=== PATIENT | male | born 1965 | race Caucasian/White ===

== ENCOUNTER 2025-01-11 07:58 | Outpatient (CLI) | payer OTHER, SELFPAY ==
--- OUTSIDE RECORDS SUMMARY | 2025-01-11 08:04 | XMS_ITS | Referral Summary ---
Author Organization [facility] Address [address] [place] [address] Care Team Providers Care Headhunter Name Role Phone Fernando Myers MD Primary Care Provider [phone] Allergies No known active allergies Medications aspirin 81 mg tablet Take 1 tablet (81 mg total) by mouth daily Active citalopram (CeleXA) 40 mg tabletIndicatio ns:Moderate episode of recurrent major depressive disorder (HCC),Generaliz ed anxiety disorder Take 1 tablet by mouth once daily 30 tablet 5 Active pravastatin (PRAVACHOL) 40 mg tabletIndicatio ns:Dyslipidemia Take 1 tablet by mouth once daily 30 tablet 5 Active fenofibrate (TRIGLIDE) 160 mg tabletIndicatio ns:Dyslipidemia Take 1 tablet by mouth once daily 30 tablet 5 Active citalopram (CeleXA) 40 mg tabletIndicatio ns:Moderate episode of recurrent major depressive disorder (HCC),Generaliz ed anxiety disorder Take 1 tablet by mouth once daily 30 tablet 5 12/29/19 25 Discontinued pravastatin (PRAVACHOL) 40 mg tabletIndicatio ns:Dyslipidemia Take 1 tablet by mouth once daily 30 tablet 5 12/29/19 25 Discontinued fenofibrate (TRIGLIDE) 160 mg tabletIndicatio ns:Dyslipidemia Take 1 tablet by mouth once daily 30 tablet 5 12/29/19 25 Discontinued Active Problems Problem Noted Date Diagnosed Date SABA (obstructive sleep apnea) 09/10/2023 Personal history of colonic polyps 06/21/2023 Encounter for screening colonoscopy 06/21/2023 Refused influenza vaccine 08/21/2019 Assessment & Plan (08/21/2019 9:23 PM CDT): Discussed and the patient refuses immunization today. Educated regarding the need to vaccinate for personal protection and to limit the viruses in the community to protect those most vulnerable. Overweight with body mass in dex (BMI) of 29 to 29.9 in adult 11/08/2018 Assessment & Plan (09/01/2024 2:00 PM CDT): Encouraged heart healthy diet and lifestyle. Advised 150 min/week of aerobic exercise. Assessment & Plan (11/08/2018 4:00 PM CDT): Reviewed need to lose weight, reviewed health benefits. Reviewed recommendations for daily intake & activity 20-30 minutes/day. Lower appetite, has lost weight. Spinal stenosis of lumbar re gion without neurogenic claudication-moderate L3-4 level 04/25/2018 Assessment & Plan (09/01/2024 2:00 PM CDT): Assessment & Plan (08/21/2019 9:23 PM CDT): Encouraged otc tylenol/ibuprofen prn back pain. Discussed ice, gentle ROM, increased activity/core strengthening & other non pharm methods of pain relief. Tramadol & diazepam refilled today. Aware to NOT take together. Denies bowel/bladder dysfunction. Denies cauda equina. Reviewed red flags. Screening for colon cancer 02/17/2018 Overview (02/17/2018): Added automatically from request for surgery [id number] Chronic bilateral low back pain without sciatica 07/22/2017 Assessment & Plan (09/01/2024 2:00 PM CDT): Stable and well controlled. No recent flare ups. Will continue to monitor. Assessment & Plan (11/08/2018 4:03 PM CDT): Discussed medical marijuana/CBD. Aware to make f/u appt w/Dr Myers if he is interested in moving forward. Tramadol refilled. Has not had filled since 06/2018. Reviewed med SE& scheduling. Will call Dr Mckinley's office re: worsening of LBP since most recent injection. Encouraged otc tylenol/ibuprofen prn back pain. Discussed ice, gentle ROM, increased activity/core strengthening & other non pharm methods of pain relief. Denies bowel/bladder dysfunction. Denies cauda equina. Reviewed red flags. Pain of foot 03/02/2016 Overview (09/17/2016): Right foot pain Moderate episode of recurrent major depressive d isorder 12/12/2015 Overview (09/17/2016): Moderate episode of recurrent major depressive disorder Assessment & Plan (09/01/2024 2:00 PM CDT): Stable and well controlled. Will continue on Celexa. Will continue to monitor. Assessment & Plan (08/21/2019 9:21 PM CDT): Reports good control of depression w/current regimen. No changes to be made at this time. Reviewed med Ses & scheduling. Reviewed red flags. Assessment & Plan (11/08/2018 4:01 PM CDT): Psychological condition is stable. Continue current treatment regimen. Regular aerobic exercise. Psychological condition will be reassessed at the next regular appointment. Reports good control of depression w/current regimen. No changes to be made at this time. Reviewed med Ses & scheduling. Reviewed red flags. Anxiety disorder 01/15/2015 Overview (09/17/2016): Anxiety disorder Assessment & Plan (09/01/2024 2:00 PM CDT): Stable and well controlled. Will continue on Celexa. Will continue to monitor. Assessment & Plan (08/21/2019 9:21 PM CDT): Reports good control of anxiety w/current regimen. No changes to be made at this time. Reviewed med Ses & scheduling. Reviewed red flags. Assessment & Plan (11/08/2018 4:00 PM CDT): Psychological condition is stable. Continue current treatment regimen. Regular aerobic exercise. Psychological condition will be reassessed at the next regular appointment. Reports good control of anxiety w/current regimen. No changes to be made at this time. Citalopram 40 mg refill sent. Reviewed med Ses & scheduling. Reviewed red flags. Dyslipidemia 10/28/2013 Overview (09/18/2016): Dyslipidemia Assessment & Plan (09/01/2024 2:00 PM CDT): Lipid panel improved but not at goal of LDL <70. Will continue on Fenofibrate and pravastatin. Will continue to monitor. Assessment & Plan (08/21/2019 9:20 PM CDT): 03/11/18 VG=855 HDL=42 XQ=583 TON=827 TC/HDL=6.6 06/22/19 AC=958 HDL=54 BB=499 AWE=557 TC/HDL=4.1 Reviewed labs from 06/22/19. LDL improved from 201 to 139. TC/HDL decreased from 6.6 to 4.1. Gastroesophageal reflux disease 10/28/2013 Overview (09/18/2016): Esophageal reflux Assessment & Plan (08/21/2019 9:20 PM CDT): Reviewed provocative foods to avoid: caffeine, citrus, ETOH, carbonated drinks, fried/fatty/fast foods & rich/creamy sauces. Reviewed diet/exercise recommendations: 20-30min physicaly activity daily at minimum. Reviewed med Ses & scheduling. Weight loss will help improve GERD sxs. Keep HOB elevated 30 degrees & not eat 2-3 hrs before bedtime. Resolved Problems Problem Noted Date Diagnosed Date Resolved Date DDD (degenerative disc disease), lumbar 08/25/2019 09/01/2024 Lumbar post-laminectomy synd aamir-L4,L5,sacrum pedicle fusion 04/25/2018 09/01/2024 Disorder of intervertebral disc 10/28/2013 09/01/2024 Overview (09/18/2016): DISC DIS NEC/NOS-LUMBAR Immunizations Immunization Administration Dates Next Due Influenza, Quadrivalent, Spl it, Preservative Free, Intramuscular 03/11/2018,07/09/2017,07/02/2016 Influenza, Split 08/25/2013,08/25/2013 Influenza, Trivalent, IM (MDV) 04/14/2014,2013 Influenza, Unspecified 09/01/2024(Deferr ed: Patient Refused),09/01/2024(Deferred: Patient Refused),04/18/2024(Deferred: Patient Refused),02/13/2024(Deferred: Patient Refused),02/13/2024(Deferred: Patient Refused),06/14/2023(Deferred: Patient Refused),03/23/2023(Deferred: Patient Refused),03/14/2023(Deferred: Patient Refused),09/08/2022(Deferred: Patient Refused),09/08/2022(Deferred: Patient Refused),06/14/2021(Deferred: Patient Refused),02/21/2021(Deferred: Patient Refused),10/31/2020(Deferred: Patient Refused),08/21/2019(Deferred: Patient Refused),06/14/2019(Deferred: Patient Refused),06/14/2019(Deferred: Patient Refused),06/14/2018(Deferred: Patient Refused),07/09/2017 Tdap 11/07/2022 Social History Tobacco Use Types Packs/Day Years Used Date Smoking Tobacco: Former Smokeless Tobacco: Never Tobacco Cessation:Counseling Given: Not Answered Comments:Smoking History Packs/day: 0.5 Packs Alcohol Use Standard Drinks/Week Comments Not Asked 0 (1 standard drink = 0.6 oz pur e alcohol) 2-3 nights a week, weekends PHQ-2 Answer Date Recorded PHQ-2 Total Score (If total score is 3 or more points, staff should administer the PHQ-9) 0 09/01/2024 Personal Safety Answer Date Recorded Have you ever been in or are you currently in a harmful physical or emotional relationship or is someone making you feel afraid or unsafe? Denies 12/29/2023 Sex and Gender Information Value Date Recorded Sex Assigned at Not on file Legal Sex Male 6:54 PM [employer] Gender Identity Not on file Sexual Orientation Not on file Last Filed Vital Signs Vital Sign Reading Time Taken Comments Blood Pressure 112/70 09/01/2024 1:24 PM CDT Pulse 83 09/01/2024 1:24 PM CDT Temperature 36.5 C (97.7 F) 03/15/2024 3:02 PM CDT Respiratory Rate 18 09/01/2024 1:24 PM CDT Oxygen Saturation 96% 09/01/2024 1:24 PM CDT Inhaled Oxygen Concentration - - Weight 89.4 kg (197 lb 3.2 oz) 09/01/2024 1:24 P M CDT Height 175.3 cm (5' 9.02) 09/01/2024 1:24 PM CD T Body Mass Index 29.11 09/01/2024 1:24 PM CDT Plan of Treatment Not on file Goals Goal Patient Goal Type Associated Problems Recent Progress Patient-Stated? Author -[facility] Deepali Saleh, LUIS Note: Spend quality time with [facility] Procedures Procedure Name Priority Date/Time Associated Diagnosis Comments PSA SCREEN Routine 09/25/2024 10:33 AM CDT Elevated PSA COLONOSCOPY 12/29/2023 8:45 AM CDT from Last 3 Months or Most Recently Relevant to Health Maintenance Results * (ABNORMAL) PSA screen (09/25/2024 10:33 AM CDT) PSA 5.33(H) < OR = 4.00 ng/mL [facility] Comment: The total PSA value from this assay system is standardized against the WHO standard. The test result will be approximately 20% lower when compared to the equimolar-standardized total PSA (Danielle [place]). Comparison of serial PSA results should be interpreted with this fact in mind. This test was performed using the Siemens chemiluminescent method. Values obtained from different assay methods cannot be used interchangeably. PSA levels, regardless of value, should not be interpreted as absolute evidence of the presence or absence of disease. Blood 09/25/2024 10:3 3 AM CDT 09/25/2024 10:34 AM CDT Narrative [facility] - 09/26/2024 6:34 AM CDT FASTING:YES FASTING: YES Sonia Mabel King PATTERN PAINTER LAB BLOOD ORDERABLES Final Re sult [facility] [id number] [address] [place] [id number] * Colonoscopy (12/29/2023 8:45 AM CDT) Anatomical Region Laterality Modality Other Narrative Procedure Note Aidee Powers MD - 12/29/2023 8:45 AM CDT [facility] Patient Name: Ulices Jamil Procedure Date: 12/29/2023 8:45 AM Date of : 1965 Admit Type: Outpatient Age: 58 Gender: Male Attending MD: Aidee Powers M.D. Room: [facility] ENDOSCOPY ROOM 2 Note Status: Finalized Patient Profile: This is a 58 year old male hx of depression,anxiety, HLD, GERD, obesity, SABA here for polypsurveillance. Last colonoscopy from 2017 showed 1 polyp howeverbx did not reveal any polypoid tissue. No family hx of colon cancer. Procedure: Colonoscopy Indications: High risk colon cancer surveillance: Personalhistory of colonic polyps, Last colonoscopy: February2018 Referring MD: Fernando Myers M.D. Providers: Aidee Powers M.D. Impression: - Preparation of the colon was fair. - Perianal skin tags found on perianal exam. - One 3 mm polyp in the cecum, removed with a jumbo cold forceps. Resected and retrieved. - One 3 mm polyp in the transverse colon, removedwith a jumbo cold forceps. Resected and retrieved. - One 4 mm polyp in the rectum, removed with a cold snare. Resected and retrieved. - One 3 mm polyp in the rectum, removed with ajumbo cold forceps. Resected and retrieved. - External and internal hemorrhoids. - Colonic spasm and looping. Recommendation: - Patient has a contact number available for emergencies. The signs and symptoms of potential delayed complications were discussed with thepatient. Return to normal activities tomorrow. Written discharge instructions were provided to thepatient. - Discharge patient to home (with escort). - Resume previous diet. - Continue present medications. - Await pathology results. - Repeat colonoscopy in 3 years for surveillancebased on pathology results. - Return to primary care physician as previously scheduled. Medicines: Monitored Anesthesia Care Complications: No immediate complications. Estimated Blood Loss: Estimated blood loss was minimal. Procedure: Pre-Anesthesia Assessment: - Prior to the procedure, a History and Physicalwas performed, and patient medications and allergieswere reviewed. The patient is competent. The risks and benefits of the procedure and the sedation optionsand risks were discussed with the patient. Allquestions were answered and informed consent was obtained. Patient identification and proposed procedure were verified by the physician, the anesthesiologist and the freezer laboratory technician in the endoscopy suite. MentalStatus Examination: normal. Prophylactic Antibiotics: The patient does not require prophylactic antibiotics. Prior Anticoagulants: The patient has taken no anticoagulant or antiplatelet agents. Afterreviewing the risks and benefits, the patient was deemed in satisfactory condition to undergo the procedure.The anesthesia plan was to use monitored anesthesiacare (MAC). Immediately prior to administration of medications, the patient was re-assessed foradequacy to receive sedatives. The heart rate, respiratory rate, oxygen saturations, blood pressure, adequacyof pulmonary ventilation, and response to care were monitored throughout the procedure. The physical status of the patient was re-assessed after the procedure. The benefits, risks and alternatives of theprocedure and sedation were discussed and informed consentwas obtained. All questions were answered. Please referto the signed informed consent document in the medical record. The bowel preparation used was Miralax via split dose instruction. The bowel preparation usedwas bisacodyl tablets via split dose instruction. The scope was passed under direct vision. The Pediatric Colonoscope PCF-H190L [id number] was introducedthrough the anus and advanced to the the cecum, identifiedby appendiceal orifice and ileocecal valve. The colonoscopy was somewhat difficult. The patient tolerated the procedure well. The quality of thebowel preparation was fair. Bowel prep was administered using a split dose. Findings: Skin tags were found on perianal exam. A 3 mm polyp was found in the cecum. The polyp was flat. The polypwas removed with a jumbo cold forceps. Resection and retrieval werecomplete. A 3 mm polyp was found in the transverse colon. The polyp was flat.The polyp was removed with a jumbo cold forceps. Resection and retrieval were complete. A 4 mm polyp was found in the rectum. The polyp was sessile. Thepolyp was removed with a cold snare. Resection and retrieval werecomplete. A 3 mm polyp was found in the rectum. The polyp was sessile. Thepolyp was removed with a jumbo cold forceps. Resection and retrieval were complete. External and internal hemorrhoids were found during retroflexion. There was spasm and looping in the colon making exam somewhatdifficult. Aidee Powers M.D. 12/29/2023 11:16:50 AM Number of Addenda: 0 Note Initiated On: 12/29/2023 8:45 AM Procedure Code(s): --- Professional --- 59325, Colonoscopy, flexible; with removal of tumor(s), polyp(s), or other lesion(s) by snare technique 02499, 59, Colonoscopy, flexible; with biopsy, single or multiple --- Technical --- 88658, Colonoscopy, flexible; with removal of tumor(s), polyp(s), or other lesion(s) by snare technique [id number], 59, Colonoscopy, flexible; with biopsy, single or multiple Diagnosis Code(s): --- Professional --- Z86.010, Personal history of colonic polyps K64.8, Other hemorrhoids K58.9, Irritable bowel syndrome without diarrhea D12.0, Benign neoplasm of cecum D12.3, Benign neoplasm of transverse colon (hepatic flexure orsplenic flexure) D12.8, Benign neoplasm of rectum K64.4, Residual hemorrhoidal skin tags --- Technical --- Z86.010, Personal history of colonic polyps K64.8, Other hemorrhoids K58.9, Irritable bowel syndrome without diarrhea D12.0, Benign neoplasm of cecum D12.3, Benign neoplasm of transverse colon (hepatic flexure orsplenic flexure) D12.8, Benign neoplasm of rectum K64.4, Residual hemorrhoidal skin tags CPT copyright 2020 [employer]. All rights reserved. The codes documented in this report are preliminary and upon health unit supervisor reviewmay be revised to meet current compliance requirements. Recognized by the [employer] [employer] for promoting quality in endoscopy Aidee Powers MD ENDOSCOPY PROCEDURES Final Resul t from Last 3 Months or Most Recently Relevant to Health Maintenance Insurance [facility] CHOICE PLUS [facility] CHOICE PLUS ANTH [employer] OOS Member Subscriber Plan / Payer (Ef fective 2020-Present) Name:Ulices Jamil Relation to Subscriber:Self Name:Ulices Jamil Payer ID:[id number] (NAIC) Type:[employer] Address: [address] CHOICE PLUS [facility] CHOICE PLUS Advance Directives For more information, please contact: [phone] * Full Code (Latest Code Status on File) Date Activated Date Inactivated Comments 12/29/2023 8:45 AM 12/29/2023 3:53 PM * Full Code Date Activated Date Inactivated Comments 12/29/2023 8:45 AM 12/29/2023 8:45 AM * Full Code Date Activated Date Inactivated Comments 03/07/2018 7:40 AM 03/07/2018 11:47 AM Care Teams Headhunter Relationship Specialty Start Date End Date Fernando Myers [place] [address] PCP - General 09/11/16
--- OUTSIDE RECORDS SUMMARY | 2025-01-11 08:04 | XMS_ITS | Clinical Summary ---
Author Organization [facility] Address [address] [place] [address] Care Team Providers Care Artificial Snow Making Machine Operator Name Role Phone Fernando Myers MD Primary Care Provider [phone] Allergies No known active allergies Medications aspirin [...] (02/17/2018): Added automatically from request for surgery [id number] Chronic bilateral low back pain without sciatica [...] & Plan (08/21/2019 9:20 PM CDT): 03/11/18 NK=500 HDL=42 JG=378 YOL=882 TC/HDL=6.6 06/22/19 IZ=633 HDL=54 PD=309 IDH=776 TC/HDL=4.1 Reviewed labs from 06/22/19. LDL improved [...] Refused),06/14/2019(Deferred: Patient Refused),06/14/2018(Deferred: Patient Refused),07/09/2017 Tdap 11/07/2022 Surgical History Surgery Date Site/Laterality Comments SPINAL FUSION Spinal fusion Medical History Medical History Date Comments GERD (gastroesophageal reflux disease) Arthritis Depression Low back pain Hyperlipidemia Family History Medical History Relation Name Comments Other Father CAD, OA; Hypertension Mother Mom Hypertension; Hypertension Sister 2 Jenna Hypertension; Relation Name Status Comments Father Alive Mother Mom Alive Sister 1 Alive Sister 2 Jenna Social History Tobacco Use Types Packs/Day Years [...] on file 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 Gender Identity Not on file Sexual Orientation Not on file Obstetrics History Last Filed Vital Signs Vital Sign Reading [...] 09/01/2024 1:24 PM CDT Plan of Treatment Health Maintenance Due Date Last Done Comments Hepatitis C Screening 1965 Hepatitis B Screening 1985 Zoster Vaccine (1 of 2) 2017 Influenza Vaccine (#1) 2025 8, 07/09/2017, 07/09/2017, Additional history exists Depression Screening 09/01/2025 09/01/2024, 03/15/2024, 03/23/2023, Additional history exists Regular Well Visit/Exam 18-64 09/01/2025 09/01/2024, 09/08/2022, 02/21/2021 Prostate Cancer Screening-PSA 09/25/2026 09/25/2024, 08/30/2024, 09/05/2022 Colon Cancer Screening-Colonoscopy 12/28/2026 12/29/2023, 03/07/2018 DTaP/Tdap/Td Vaccine (2 - Td or Tdap) 11/07/2032 11/07/2022 Colon Cancer Screening-CT Colonography Discontinued 12/29/2023, 03/07/2018 Colon Cancer Screening-DNA Stool Discontinued 12/29/2023, 03/07/2018 Colon Cancer Screening-FIT Discontinued 12/29/2023, Colon Cancer Screening-Sigmoidoscopy Discontinued 12/29/2023, 03/07/2018 Pneumococcal vaccine <65 Aged Out No longer eligible based on patient's age to complete this topic Goals Goal Patient Goal Type Associated Problems Recent Progress Patient-Stated? Author [facility] No Deepali Davis, LUIS Note: Spend quality time with [employer] Procedures Procedure Name Priority Date/Time Associated Diagnosis Comments PSA SCREEN Routine 09/25/2024 10:33 AM CDT Elevated PSA COLONOSCOPY 12/29/2023 8:45 AM CDT from Last 3 Months or Most Recently Relevant to Health Maintenance Results * (ABNORMAL) PSA screen (09/25/2024 10:33 AM CDT) PSA 5.33(H) < OR = 4.00 ng/mL [facility] Comment: The total PSA value from this assay system is standardized against the WHO standard. The test result will be approximately 20% lower when compared to the equimolar-standardized total PSA (Danielle Mamta). Comparison of serial PSA results should be [...] 09/26/2024 6:34 AM CDT FASTING:YES FASTING: YES us Sonia King NP LAB BLOOD ORDERABLES Final Re sult [facility] [address] [address] * Colonoscopy (12/29/2023 8:45 AM CDT) Anatomical Region Laterality Modality Other Narrative Procedure Note Aidee Powers MD - 12/29/2023 8:45 AM CDT [facility] Patient Name: Ulices Jamil Procedure Date: 12/29/2023 8:45 AM Date of : 1965 Admit Type: Outpatient Age: 58 Gender: Male Attending MD: Aidee Powers M.D. Room: [facility] ENDOSCOPY ROOM 2 Note Status: Finalized Patient [...] by the physician, the anesthesiologist and the feed research technician in the endoscopy suite. MentalStatus Examination: [...] under direct vision. The Pediatric Colonoscope PCF-H190L [id number] was introducedthrough the anus and advanced to [...] 8:45 AM Procedure Code(s): --- Professional --- 47623, Colonoscopy, flexible; with removal of tumor(s), polyp(s), or other lesion(s) by snare technique 24541, 59, Colonoscopy, flexible; with biopsy, single or multiple --- Technical --- 58007, Colonoscopy, flexible; with removal of tumor(s), polyp(s), or other lesion(s) by snare technique 54063, 59, Colonoscopy, flexible; with biopsy, single or [...] Residual hemorrhoidal skin tags CPT copyright 2020 [place] [employer]. All rights reserved. The codes documented in this report are preliminary and upon naval aircrewman helicopter reviewmay be revised to meet current compliance requirements. Recognized by the [place] [employer] for promoting quality in endoscopy Aidee Powers MD ENDOSCOPY PROCEDURES Final Resul t from Last 3 Months or Most Recently Relevant to Health Maintenance Insurance [facility] H[facility]/PPO Address: [id number] [place] [address] [facility] CHOICE PLUS [facility]/PPO Address: [address] [address] [place] [address] [facility] [employer] OOS CHOICE PLUS [facility] HMO/PPO Address: [address] [address] [place] [address] [facility] CHO[facility]/PPO Address: [place] [address] Advance Directives For more information, please contact: [phone] * Full Code (Latest Code Status on File) Date Activated Date Inactivated Comments 12/29/2023 8:45 AM 12/29/2023 3:53 PM * Full Code Date Activated Date Inactivated Comments 12/29/2023 8:45 AM 12/29/2023 8:45 AM * Full Code Date Activated Date Inactivated Comments 03/07/2018 7:40 AM 03/07/2018 11:47 AM Care Teams Artificial Snow Making Machine Operator Relationship Specialty Start Date End Date Fernando Myers MD [address] [place] [address] PCP - General 09/11/16
--- OUTSIDE RECORDS SUMMARY | 2025-01-11 08:05 | XMS_ITS | Clinical Summary ---
Author Organization [facility] Address [address] [place] [address] Care Team Providers Care Business Instructor Name Role Phone Fernando Myers MD Primary Care Provider [phone] Allergies No known active allergies Medications ARIPiprazole (ABILIFY) 5 MG tablet Take 1 tablet (5 mg total) by mouth daily. Active aspirin EC (ECOTRIN) 81 MG tablet Take 1 tablet (81 mg total) by mouth daily. Active citalopram (CELEXA) 40 MG tablet Take 1 tablet (40 mg total) by mouth daily. 11/02/2022 Active fenofibrate 160 MG tablet Take 1 tablet (160 mg total) by mouth daily. Active pravastatin (PRAVACHOL) 40 MG tablet Take 1 tablet (40 mg total) by mouth daily. Active Immunizations Immunization Administration Dates Next Due Tdap (Boostrix) 11/07/2022 Family History Medical History Relation Comments Hypertension Mother Relation Status Comments Father Mother Alive Social History Tobacco Use Types Packs/Day Years Used Date Smoking Tobacco: Never Smokeless Tobacco: Never Tobacco Cessation:Counseling Given: Not Answered Alcohol Use Standard Drinks/Week Comments Yes 0 (1 standard drink = 0.6 oz pur e alcohol) occasional Sex and Gender Information Value Date Recorded Sex Assigned at Not on file Legal Sex Male 4:46 PM CDT Gender Identity Not on file Sexual Orientation Not on file Last Filed Vital Signs Vital Sign Reading Time Taken Comments Blood Pressure 144/80 11/07/2022 10:27 PM CDT Pulse 85 11/07/2022 10:27 PM CDT Temperature 36.8 C (98.3 F) 11/08/2022 12:12 AM CDT Respiratory Rate 16 11/07/2022 10:27 PM CDT Oxygen Saturation 97% 11/07/2022 10:27 PM CDT Inhaled Oxygen Concentration - - Weight 90.7 kg (200 lb) 11/07/2022 10:27 PM CDT Height 175.3 cm (5' 9) 11/07/2022 10:27 PM CDT Body Mass Index 29.53 11/07/2022 10:27 PM CDT Plan of Treatment Health Maintenance Due Date Last Done Comments Colorectal Cancer Screening Colonoscopy (10 Years) 1967 Annual Physical 1970 Hepatitis C 1985 Hepatitis B Vaccines (1 of 3 - 19+ 3-dose series) 1986 Pneumococcal Vaccine: 50+ Years (1 of 1 - PCV) 2017 Zoster Vaccines (1 of 2) 2017 COVID-19 Vaccine (3 - 2023-2 5 season) 2024 09/22/2020, 08/10/2020 DTaP, Tdap and Td Vaccines ( 2 - Td or Tdap) 11/07/2032 11/07/2022 Meningococcal B Vaccine Aged Out No l onger eligible based on patient's age to complete this topic Meningococcal Vaccine Aged Out No rajiv fernando eligible based on patient's age to complete this topic RSV Immunizations Under 20 Months Aged Out No longer eligible b ased on patient's age to complete this topic Insurance [id number] Care Teams Business Instructor Relationship Specialty Start Date End [place] [address] PCP - General INTERNAL MEDICINE 11/07/22
--- NOTE | 2025-01-11 08:43 | ECG_ITS ---
Test Date: 2025-01-11 09:16:30 Measurements Intervals [place] Rate: 61 P: 44 CA: 192 QRS: 17 QRSD: 106 T: 36 QT: 423 QTc: 429 Interpretive Statements SINUS RHYTHM DELAYED PRECORDIAL R/S TRANSITION BASELINE ARTIFACT- I, II, III, AVR, AVL, AVF, V1-V6 BORDERLINE ECG No previous ECG available for comparison Electronically Signed On 01-12-2025 06:25:08 CDT by Trevor Melchor D.O.
[2025-01-11 09:30] LABS: Hematocrit 39.2 % (42.0-52.0); Hemoglobin 13.2 g/dL (14.0-18.0); Immature Granulocyte Percent A 0.2 % (0-0.5); Lymphocytes Absolute Auto 1.97 K/mm3 (0.9-3.2); Mean Corpuscular HGB Conc 33.7 g/dl (32-36); Mean Corpuscular Hemoglobin 31.7 pg (26-34); Mean Corpuscular Volume 94.2 fl (80-100); Nucleated Red Blood Cells Absolute Auto 0.000 K/mm3 (0.0-0.012); Nucleated Red Blood Cells Perc 0.0 % (0.0-0.2); Platelet Count Result 307 k/mm3 (150-375); Red Blood Count 4.16 M/mm3 (4.6-6.20); White Blood Count 6.1 K/mm3 (4.5-10.0)
[2025-01-11 09:42] LABS: INR 1.0; Prothrombin Time 13.3 Seconds (11.1-14.7)
[2025-01-11 09:43] LABS: Partial Thromboplastin Time 29.2 Seconds (22.3-36.8)
[2025-01-11 09:56] LABS: Alanine Aminotransferase 34 U/L (6-50); Albumin Level 4.9 g/dL (3.5-5.1); Alkaline Phosphatase 42 U/L (38-126); Anion Gap 6 mmol/L (4-12); Aspartate Amino Transferase 43 U/L (17-59); Bilirubin,Total 0.6 mg/dL (0.2-1.3); Blood Urea Nitrogen 18 mg/dL (9-20); Calcium 9.4 mg/dL (8.4-10.2); Carbon Dioxide 27 mmol/L (22-30); Chloride 103 mmol/L (98-107); Estimated Glomerular Filt Rate > 60; Glucose 98 mg/dL (65-110); Potassium 4.0 mmol/L (3.4-5.0); Sodium 136 mmol/L (137-145); Total Protein 7.8 g/dL (6.3-8.2)
== END 2025-01-11 07:59 | disposition home or self-care (01) ==
LOC: ANHSURGERY 08:02
PROVIDERS: PCP Family Medicine; Visit Provider Urology
DX: C61 Malignant neoplasm of prostate (principal); E78.00 Pure hypercholesterolemia, unspecified; Z01.818 Encounter for other preprocedural examination
CPT/HCPCS: 36415; 80053; 85025; 85610; 85730; 86850; 86900; 86901; 87086; 93005

== ENCOUNTER 2025-01-19 03:06 | Day surgery (SDC) | payer OTHER, SELFPAY ==
--- NOTE | 2025-01-11 08:00 | PC.NURSE ---
Report to the Outpatient Waiting Room, entrance under the green pavilion located off [facility], at time _7 AM on date __01/19/25 . Planned Procedure Time: __9 AM .? Time changes happen often and if your time is changed the preop area will call you the afternoon before. - You and your visitor will be asked to self-screen and do not enter if you have any COVID symptoms. Please call surgeon if you need to reschedule. - A mask is optional within the hospital at this time. Patients may have clear liquids (water, carbonated beverages, clear teas, apple juice) until 3 hours prior to surgery ( 6AM) with a maximum of 20 ounces. - No food from midnight until time of surgery and no smoking, or chewing tobacco (or any form of nicotine). No chewing gum, candy or mints. Take only the following medications with a SIP of water on the morning of surgery: ___CITALOPRAM DO NOT STOP ANY OF YOUR OTHER PRESCRIPTION MEDICATIONS PRIOR TO SURGERY EXCEPT THE FOLLOWING Hold all vitamins and supplements for 3 days per anesthesiologist. Medications to discontinue per physician IBUPROFEN HOLD 7 DAYS PRE OP PER DR ACKERMAN Date to take last dose 01/11/25 Please no make-up, nail [place] su[place], hairspray, perfume, deodorant, or body powder the day of surgery.? No jewelry (including any body piercings) or valuables the day of surgery, leave them at home.? Please take a shower or bath the night before, or the morning of, surgery with an antibacterial soap.? Wear comfortable, loose fitting clothing.? Children are encouraged to wear pajamas. - Jewelry must be removed prior to entering the operating room.? Rings and piercings that are not removed may be cut off. - The hospital will not accept responsibility for valuables.? - Please leave all valuables, including medications, at home the day of surgery. If you are going home after surgery, a licensed otr driver must drive you home.? - NO public transportation without another adult if you receive anesthesia. - We recommend that an adult stay with you for 24 hours following discharge. - We also recommend that you do not drive, make important decision, drink alcoholic beverages, or take any drugs that were not prescribed by your health care provider for at least 24 hours after your discharge time. Follow any additional instructions given to you from your surgeon. VERBAL AND WRITTEN instructions given to ___PATIENT and asked if any additional questions and then verbalized understanding. Patient advised to call surgeon office or pre surgery nurse liaison [phone] if any additional questions.
[2025-01-11 08:05] VITALS: BMI 29.1
[2025-01-11 08:43] VITALS: BP 135/87; PULSE 60; RESP 18; TEMP 36.8; O2SAT 97
[2025-01-19] VITALS (11 sets, daily range): BP systolic 128–151; BP diastolic 74–94; PULSE 73–87; RESP 14–20; TEMP 36.2–37; O2SAT 93–100; BMI 27.8
--- OUTSIDE RECORDS SUMMARY | 2025-01-19 03:09 | XMS_ITS | Clinical Summary ---
Author Organization [facility] Address [address] [place] [address] Care Team Providers Care Tearer Press Clipping Name Role Phone Fernando Myers MD Primary Care Provider [phone] Allergies No known active allergies Medications aspirin [...] (02/17/2018): Added automatically from request for surgery [id number] Chronic bilateral low back pain without sciatica [...] & Plan (08/21/2019 9:20 PM CDT): 03/11/18 GD=606 HDL=42 HQ=470 OZN=076 TC/HDL=6.6 06/22/19 IH=712 HDL=54 HV=775 TYM=264 TC/HDL=4.1 Reviewed labs from 06/22/19. LDL improved [...] 10/28/2013 09/01/2024 Overview (09/18/2016): DISC DIS NEC/NOS-LUMBAR Encounters Date Type Department Care Team Description 01/11/[address] 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 Author [facility] Deepali Saleh, RN Note: Spend quality time with [employer] Procedures Procedure Name Priority Date/Time Associated Diagnosis Comments SCAN - LABS 01/11/2025 PSA SCREEN Routine 09/25/2024 10:33 AM CDT Elevated PSA COLONOSCOPY 12/29/2023 8:45 AM CDT from Last 3 Months or Most Recently Relevant to Health Maintenance Results * SCAN - LABS (01/11/2025) us Provider Scanning Edited Result - Final * (ABNORMAL) PSA screen (09/25/2024 10:33 AM [...] 6:34 AM CDT FASTING:YES FASTING: YES Sonia King POLITICAL THEORY PROFESSOR LAB BLOOD ORDERABLES Final Re sult [facility] [address] [address] * Colonoscopy (12/29/2023 8:45 AM CDT) Anatomical Region Laterality Modality Other Narrative Procedure Note Aidee Powers MD - 12/29/2023 8:45 AM CDT [facility] Patient Name: Ulices Jamil Procedure Date: 12/29/2023 8:45 AM Date of : 1965 Admit Type: Outpatient Age: 58 Gender: Male Attending MD: Aidee Powers M.D. Room: [facility] ENDOSCOPY ROOM 2 Note Status: Finalized Patient [...] by the physician, the anesthesiologist and the nuclear technician in the endoscopy suite. MentalStatus Examination: [...] under direct vision. The Pediatric Colonoscope PCF-H190L [id number] was introducedthrough the anus and advanced to [...] 8:45 AM Procedure Code(s): --- Professional --- 09608, Colonoscopy, flexible; with removal of tumor(s), polyp(s), or other lesion(s) by snare technique 89316, 59, Colonoscopy, flexible; with biopsy, single or multiple --- Technical --- 86288, Colonoscopy, flexible; with removal of tumor(s), polyp(s), or other lesion(s) by snare technique 75926, 59, Colonoscopy, flexible; with biopsy, single or [...] Residual hemorrhoidal skin tags CPT copyright 2020 [employer]. All rights reserved. The codes documented in this report are preliminary and upon hot knife foxing cutter reviewmay be revised to meet current compliance requirements. Recognized by the [employer] for promoting quality in endoscopy Aidee Powers MD ENDOSCOPY PROCEDURES Final Resul t from Last 3 Months or Most Recently Relevant to Health Maintenance Insurance [facility] [employer] OOS CHOICE PLUS [facility] Advance Directives For more information, please contact: [phone] * Full Code (Latest Code Status on File) Date Activated Date Inactivated Comments 12/29/2023 8:45 AM 12/29/2023 3:53 PM * Full Code Date Activated Date Inactivated Comments 12/29/2023 8:45 AM 12/29/2023 8:45 AM * Full Code Date Activated Date Inactivated Comments 03/07/2018 7:40 AM 03/07/2018 11:47 AM Care Teams Tearer Press Clipping Relationship Specialty Start Date End Date Fernando Myers MD [address] [place] [address] PCP - General 09/11/16
--- OUTSIDE RECORDS SUMMARY | 2025-01-19 03:09 | XMS_ITS | Clinical Summary ---
Author Organization [facility] Address [address] [place] [address] Care Team Providers Care Car Conditioner Name Role Phone Fernando Myers MD Primary Care Provider [phone] Allergies No known active allergies Medications ARIPiprazole [...] patient's age to complete this topic Insurance [id number] Care Teams Car Conditioner Relationship Specialty Start Date [place] [address] PCP - General INTERNAL MEDICINE 11/07/22
[2025-01-19] MEDS: LACTATED RINGERS 1,000 ML 30 ML IV CONT ×2 (07:50→14:30)
--- NOTE | 2025-01-19 08:33 | PM.IMHP ---
H&P: HPI History of Present Illness Date/Time: 01/19/25 08:33 Chief Complaint: Adenocarcinoma of prostate Narrative: 59 year old male with adenocarcinoma of prostate presents for robotic assist nerve sparing prostatectomy with possible plnd. He has had an ant/post approach lumbar fusion and is aware if there is significant adhesions the case will be terminated. Agrees and wishes to proceed. Review of Systems Review of Systems: All systems reviewed & are unremarkable except as noted in HPI and below PMFSH Social History Social History Smoking packs per day: 1 Smoking cigarettes per day: 20.0 Years smoked: 2 Smoking pack-years: 2.00 Smoking status: Former smoker Tobacco type: cigarettes Smoking end date: 06/14/84 Alcohol intake: current Drinks per week: 6 Alcohol use details: BEER Living arrangements: with family Spiritual care concerns: No Meds Home Medications and Allergies Home Medications ?Medication ?Instructions ?Recorded ?Confirmed ?Type citalopram 40 mg tablet 40 mg PO QAM 01/11/25 01/11/25 History fenofibrate 160 mg tablet 160 mg PO DAILY 01/11/25 01/11/25 History ibuprofen 200 mg tablet (Advil) 400 mg PO PRN PRN pain 01/11/25 01/19/25 History pravastatin 40 mg tablet 40 mg PO QAM 01/11/25 01/11/25 History Allergies Allergy/AdvReac Type Severity Reaction Status Date / Time No Known Allergies Allergy Verified 01/19/25 07:46 Vital Signs Vital Signs - 24 hr 01/19/25 07:10 Temperature 36.6 C Pulse Rate 73 Respiratory Rate 14 Blood Pressure 128/79 Pulse Oximetry 99 Oxygen Delivery Room Air Exam Const: General: cooperative and comfortable Resp: Effort & Inspection: normal respiratory effort Cardio: Rate: regular rate Rhythm: regular rhythm GI: GI Palp: Yes Soft to palpation Assessment and Plan Assessment and plan (1) Adenocarcinoma of prostate: Code(s): C61 - Malignant neoplasm of prostate Status: Acute Assessment and Plan: Robotic assist nerve sparing prostatectomy with possible plnd
--- NOTE | 2025-01-19 08:36 | WPDHPUPDATE1 ---
History and Physical Update Update Date/Time: 01/19/25 08:36 History and Physical has been reviewed, including an updated exam of the patient. There are NO changes in the patient's condition. Risks, benefits, and alternatives have been discussed and questions answered. Patient agrees to proceed with procedure.
--- NOTE | 2025-01-19 08:36 | WPDANESEPPF ---
Anes - Initial Pre Proc Eval Procedure: Operation Date: 01/19/25 09:00 Proposed Procedures p Robotic Assisted Nerve Sparing Prostatectomy, Possible Bilateral Pelvic Lymph Node Dissection - Elder Cristina MD Date/Time: 01/19/25 08:36 Surgeon: Elder Cristina MD Pre Op Diagnosis: prostate CA Patient Data Age: 59 Gender: M Height: 1.73 m Weight: 83.2 kg Last Vital Signs Temp 36.6 C 01/19/25 07:10 Pulse 73 01/19/25 07:10 Resp 14 01/19/25 07:10 BP 128/79 01/19/25 07:10 Pulse Ox 99 01/19/25 07:10 O2 Del Method Room Air 01/19/25 07:10 Allergies Allergy/AdvReac Type Severity Reaction Status Date / Time No Known Allergies Allergy Verified 01/19/25 07:46 Home Medications ?Medication ?Instructions ?Recorded ?Confirmed ?Type citalopram 40 mg tablet 40 mg PO QAM 01/11/25 01/11/25 History fenofibrate 160 mg tablet 160 mg PO DAILY 01/11/25 01/11/25 History ibuprofen 200 mg tablet (Advil) 400 mg PO PRN PRN pain 01/11/25 01/19/25 History pravastatin 40 mg tablet 40 mg PO QAM 01/11/25 01/11/25 History Patient hx anesthesia problems: post op nausea/vomiting Family hx anesthesia problems: none Results Review: All pre-operative results and documents have been reviewed as part of the pre-operative evaluation. [facility]LY [facility] Social History Social History Smoking packs per day: 1 Smoking cigarettes per day: 20.0 Years smoked: 2 Smoking pack-years: 2.00 Smoking status: Former smoker Tobacco type: cigarettes Smoking end date: 06/14/84 Alcohol intake: current Drinks per week: 6 Alcohol use details: BEER Living arrangements: with family Spiritual care concerns: No Anes - Eval Final PreProcedure Day of Procedure 01/19/25 08:36 Patient weight: overweight Heart: regular rate and rhythm Lungs: clear to auscultation Airway: Mallampati scale class II Neurological: alert and oriented Last oral intake: >/= 8 hours ASA classification: III Emergent: no Anesthetic plan: proceed Anesthesia type and monitoring: general ETT and standard monitoring Results Review: All pre-operative results and documents have been reviewed as part of the pre-operative evaluation. Informed Consent: The patient's anesthetic plan and its attendant risks and benefits were discussed with the patient/family/POA. Questions were solicited and answers provided to the satisfaction of the patient/family/POA.
[2025-01-19] MEDS: ceFAZolin 2 GM in SODIUM CHLORIDE 0.9% IV 50 ML 100 ML IVPB (09:15)
[2025-01-19] MEDS: BUPivacaine HCL 0.5% 10 ML AMP 30 ML INFILTRATE (10:25)
--- NOTE | 2025-01-19 13:10 | S_PTH ---
PATIENT: Ulices Jamil LOC: [facility] U#:[id number] AGE/SX: 59/M ROOM: RE01/19/[address]: Eledr Cristina, : 1965 BED: DIS: 01/20/2025 SPEC #: [id number] RECD: 01/22/25 07:31 STATUS: CONNER REDamion #: [id number] ASHWINI: 01/19/25 13:[address]: Ibeth,Elder Paul DEPT: [facility] Surgical RECD BY: Yarely Vazquez ENTERED: 01/22/25 07:32 SP TYPE: Surgical OTHR DR: Fernando Myers, M.DValerio Tissues: A - Prostate B - Fat Procedures: Hematoxylin and Eosin Stain Gross and Microscopic Level 3 Gross and Microscopic Level 6 PIN 4 Prostate Triple Stain
--- NOTE | 2025-01-19 14:16 | P.OP_ITS ---
Procedure Note - Detailed Date of Procedure 01/19/25 Pre-op Diagnosis prostate CA Post-op Diagnosis Same Procedure Performed Lysis of extensive adhesions, robotic assisted nerve-sparing prostatectomy with right pelvic lymph node dissection Surgeon Elder Cristina MD Anesthesia General Description of Procedure Patient was taken the operative suite correctly identified. Once anesthesia was obtained was placed in dorsal lithotomy position and prepped draped usual sterile fashion. Sixteen Bhutanese Rincon was placed. Supraumbilical incision was made carried down to the rectus fascia. Veress needle was inserted and the abdomen insufflated to 15 mmHg pressure. Camera port was inserted. It was noted that he had extensive amount of adhesions from his umbilical hernia as well as his anterior-posterior lumbar fusion. I placed the other working ports in. Adhesions were all taken down. This added another 45 minutes to an hour to the case. Attention was then given to a posterior approach. Seminal vesicles were dissected out in their entirety. Vessels were transected. Bladder was then taken down. Space of Retzius was opened bilaterally. It was noted that there was quite a bit of adhesions and fibrosis from his prior surgery. It was somewhat more difficult to dissect out the right apex of the prostate. At this point time we simply placed dorsal venous complex suture and secured to the pubic bone. The bladder neck was then opened. Bladder neck sparing procedure was done. Posterior denied these was incised the ampulla of the vas is and vas were isolated. Pedicles were taken down and clipped. Nerves were spared bilaterally. The plane between the prostate and rectum had been developed. Once we worked our way to the apex I needed to transect the dorsal vein complex. Once this was done this opened up the anterior urethra some. I placed AV lock suture around the dorsal venous complex at this point time for added hemostasis. The urethra was transected. Specimens were placed in Endo-Catch bag. Right pelvic lymph node dissection was performed the standard fashion. Placed in a Endo-Catch bag also. A Stefan stitch was then placed. The anastomosis was performed using AV lock suture in a running fashion. There was good approximation of mucosa. Sixteen Bhutanese Rincon was inserted inflated with 10 cc in the balloon. The bladder was filled to 100 cc. There was no evidence of extravasation at this time. Robot was undocked. Specimen was brought out through the midline incision. 0 Vicryl was used to close the incision. Subcuticular stitches were then placed using Monocryl. Incisions were anesthetized with 1% lidocaine. Patient was taken recovery stable condition. This completes dictation. Please send a copy of op note to my office. Estimated Blood Loss 150 Drains Yes Packing No Pathology Yes Complications No immediate complications Condition Stable Disposition PACU
[2025-01-19] MEDS: HYDROmorphone HCL INJ (*CRX) 1 MG/ML SYR 0.5 MG IV PUSH ×2 (14:56→15:03)
--- NOTE | 2025-01-19 15:52 | ADMGEN ---
This patient, Ulices Jamil, was admitted to 2 Medical Room 251-01. Patient/family oriented to hospital policies and general routines including ID bracelet, bed and alarms, visiting hours, pain management, procedures, bathroom and other care routines, personal items, smoking policy, room service/diet, and visiting hours. Information on how to activate the Rapid Response Team has been discussed. Patient/Family are encouraged to report perceived risks to care and to ask questions if they do not understand what they are told or what they should do.
[2025-01-19] MEDS: LACTATED RINGERS 1,000 ML 125 ML IV CONT (15:55)
[2025-01-19] MEDS: KETOROLAC 30 MG/ML VIAL (*BKC) IV PUSH (16:51)
[2025-01-19] MEDS: DOCUSATE SODIUM 100 MG CAPSULE PO (21:01)
[2025-01-20] MEDS: KETOROLAC 30 MG/ML VIAL (*BKC) IV PUSH
[2025-01-20] MEDS: LACTATED RINGERS 1,000 ML 125 ML IV CONT ×2 (00:01→09:09)
[2025-01-20 01:06] VITALS: BP 123/68; PULSE 63; RESP 16; TEMP 37.4; O2SAT 97
[2025-01-20] MEDS: HYDROcodone/acetaminophen (*CRX) 5-325 MG TABLET 1 TAB PO (03:38)
[2025-01-20 05:06] VITALS: BP 105/62; PULSE 62; RESP 16; TEMP 36.8; O2SAT 98
[2025-01-20 05:16] LABS: Hematocrit 34.6 % (42.0-52.0); Hemoglobin 11.7 g/dL (14.0-18.0)
[2025-01-20 05:32] LABS: Anion Gap 7 mmol/L (4-12); Blood Urea Nitrogen 26 mg/dL (9-20); Calcium 8.1 mg/dL (8.4-10.2); Carbon Dioxide 25 mmol/L (22-30); Chloride 104 mmol/L (98-107); Estimated CRCL calculation 59 ml/min; Estimated Glomerular Filt Rate > 60; Glucose 105 mg/dL (65-110); Potassium 4.0 mmol/L (3.4-5.0); Sodium 136 mmol/L (137-145)
--- NOTE | 2025-01-20 07:16 | WPDUROPN2 ---
Progress Note: A&P Assessment and Plan (1) Adenocarcinoma of prostate: Code(s): C61 - Malignant neoplasm of prostate Status: Acute Assessment and Plan: Post-operative RALP status. Clinically stable. Nursing to remove MEET drain and dress MEET site Cleared for discharge to home today with Glynn catheter. Subjective Subjective Date/Time Seen: 01/20/25 07:16 Interval history: S: Post-operative day 1 from RALP. Reports doing well overall. O: Hematocrit 35 (baseline 39). Creatinine 1.2 (baseline 0.9). Incisions c/d/i Good urine output in glynn, not much MEET output Glynn catheter in place, CYU; MEET sanguinous A/P: Post-operative RALP status. Clinically stable. Nursing to remove MEET drain and dress MEET site Cleared for discharge to home today with Glynn catheter. Review of Systems Review of Systems: All systems reviewed & are unremarkable except as noted in HPI and below Exam Narrative: Incisions c/d/i Good urine output in glynn, not much MEET output Glynn catheter in place, CYU; MEET sanguinous Objective Data Vital Signs Vital Signs: Vital Signs - 24 hr 01/19/25 14:30 01/19/25 14:45 01/19/25 14:52 Temperature 36.3 C L Pulse Rate 87 81 Respiratory Rate 20 20 Blood Pressure 144/86 H 141/94 H Pulse Oximetry 98 97 99 Oxygen Delivery Simple Face Mask Simple Face Mask Simple Face Mask Oxygen Flow Rate 8 8 8 01/19/25 15:00 01/19/25 15:04 01/19/25 15:15 Temperature Pulse Rate 80 81 Respiratory Rate 17 14 Blood Pressure 141/92 H 130/82 Pulse Oximetry 100 100 93 Oxygen Delivery Simple Face Mask Room Air Room Air Oxygen Flow Rate 8 01/19/25 15:21 01/19/25 15:36 01/19/25 16:06 Temperature 36.4 C L 36.2 C L 36.8 C Pulse Rate 78 79 80 Respiratory Rate 16 16 16 Blood Pressure 140/74 140/77 151/89 H Pulse Oximetry 96 95 98 Oxygen Delivery Oxygen Flow Rate 01/19/25 20:00 01/19/25 20:13 01/20/25 01:06 Temperature 37.0 C 37.4 C Pulse Rate 81 63 Respiratory Rate 16 16 Blood Pressure 141/74 H 123/68 Pulse Oximetry 98 97 Oxygen Delivery Room Air Oxygen Flow Rate 01/20/25 05:06 Temperature 36.8 C Pulse Rate 62 Respiratory Rate 16 Blood Pressure 105/62 Pulse Oximetry 98 Oxygen Delivery Oxygen Flow Rate Intake/Output Intake/Output: Intake & Output 01/17/25 01/18/25 01/19/25 01/20/25 23:59 23:59 23:59 23:59 Intake Total 1490 600 Output Total 350 540 Balance 1140 60 Meds/Results Medications: Active Medications Generic Name Dose Route Start Last Admin Trade Name Freq PRN Reason Stop Dose Admin Hydrocodone Bitart/Acetaminophen 1 tab 01/19/25 15:21 01/20/25 03:38 Hydrocodone/Acetaminophen (*Crx) 5-325 Mg Tablet PO 1 tab Q6H PRN Administration Pain Rated 1-3 Hydrocodone Bitart/Acetaminophen 2 tab 01/19/25 15:21 Hydrocodone/Acetaminophen (*Crx) 5-325 Mg Tablet PO Q6H PRN Pain Rated 4-6 Citalopram Hydrobromide 40 mg 01/20/25 09:00 Citalopram Hydrobromide 20 Mg Tablet PO QAM CELINE Docusate Sodium 100 mg 01/19/25 17:00 01/19/25 21:01 Docusate Sodium 100 Mg Capsule PO 100 mg BID CELINE Administration Fenofibrate 145 mg 01/20/25 09:00 Fenofibrate Nanocrystallized 145 Mg Tablet PO QAM CELINE Hyoscyamine 0.125 mg 01/19/25 15:21 Hyoscyamine Sulfate 0.125 Mg Tablet SUBLINGUAL Q4H PRN Bladder Spasm Lactated Ringer's 1,000 mls @ 125 mls/hr 01/19/25 15:21 01/20/25 00:01 Lr - Lactated Ringers Iv IV CONT 125 mls/hr .Q8H CELINE Administration Ketorolac Tromethamine 30 mg 01/19/25 15:21 01/20/25 00:00 Ketorolac 30 Mg/Ml Vial (*Bkc) IV PUSH 01/20/25 15:20 30 mg Q6H PRN Administration Pain Rated 4-6 Levofloxacin 500 mg 01/20/25 09:00 Levofloxacin 500 Mg Tablet PO DAILY CELINE Morphine Sulfate 1 mg 01/19/25 15:21 Morphine Sulfate (*Crx) 2 Mg/Ml Inj IV PUSH Q2H PRN Pain Rated 7-10 Naloxone HCl 0.1 mg 01/19/25 15:21 Naloxone Hcl 0.4 Mg/Ml Vial IV PUSH Q2M PRN Opiate Reversal Labs Labs: Laboratory Results - last 24 hr 01/20/25 05:01 Hgb 11.7 L Hct 34.6 L Sodium 136 L Potassium 4.0 Chloride 104 Carbon Dioxide 25 Anion Gap 7 BUN 26 H Creatinine 1.20 Estim Creat Clear Calc 59 Estimated GFR > 60 Glucose 105 Calcium 8.1 L
[2025-01-20] MEDS: CITALOPRAM HYDROBROMIDE 20 MG TABLET 40 MG PO (09:10)
[2025-01-20] MEDS: DOCUSATE SODIUM 100 MG CAPSULE PO (09:10)
[2025-01-20 09:11] VITALS: BP 117/63; PULSE 80; O2SAT 96
[2025-01-20] MEDS: FENOFIBRATE NANOCRYSTALLIZED 145 MG TABLET PO (09:11)
== END 2025-01-20 11:52 | disposition home or self-care (01) ==
LOC: ANHSURGERY 07:04 → ANH2MED 15:45
PROVIDERS: PCP Family Medicine; Visit Provider Urology
PROC: 0VT04ZZ Resection of Prostate, Percutaneous Endoscopic Approach (ICD-10-PCS; CPT 55867; principal; 2025-01-19 09:00)
DX: C61 Malignant neoplasm of prostate (principal); K66.0 Peritoneal adhesions (postprocedural) (postinfection); Z79.1 Long term (current) use of non-steroidal anti-inflammatories (NSAID); Z87.891 Personal history of nicotine dependence
CPT/HCPCS: 55866; 38571; 36415; 80048; 85014; 85018; 88304; 88309; 88342; 88344; J0690; A9270; J1100; J1171; J1885; J2250; J2405; J2704; J3010; J7030; J7120; Q9968

== ENCOUNTER 2025-01-25 12:55 | Outpatient (CLI) | payer OTHER, SELFPAY ==
--- NOTE | ~2025-01-25 | XR_ITS ---
EXAMINATION: CYSTOGRAM DATE: 01/25/2025 14:17 INDICATION: Status post prostatectomy for bladder cancer TECHNIQUE: Initial sanitarian radiograph of the pelvis was performed. There was retrograde administration of Omnipaque 350 mixed with saline contrast into patient's existing Rincon catheter. Fluoroscopic colten ges of the pelvis were obtained. A post-void image was also performed. A total of 18 fluoroscopic colten ges and 2 overhead radiographs were obtained. Fluoroscopy exposure time was 0.6 minutes. Total DAP wa s 21.191 Gycm^2. FINDINGS: Paper Box Cutter image demonstrates postoperative changes at the lower lumbar spine including L4 and L5 laminect omies and L4-S1 posterior spinal fusion with bilateral vertical taqueria and pedicle screw fixation. A cou ple latter screws with washers project over the midline could be further associated anterior spinal f usion. Contrast fills the bladder with V-shaped configuration to the bladder outlet consistent with p rior prostatectomy. No evident extraluminal extension of contrast to suggest anastomotic leak. IMPRESSION: 1. Status post prostatectomy with no bladder/anastomotic leak. Reviewed, dictated and finalized at location A.
--- OUTSIDE RECORDS SUMMARY | 2025-01-25 13:11 | XMS_ITS | Clinical Summary ---
Author Organization [facility] Address [address] [place] [address] Care Team Providers Care Chemistry Tutor Name Role Phone Fernando Myers MD Primary Care Provider [phone] Allergies No known active allergies Medications ARIPiprazole [...] patient's age to complete this topic Insurance [id number] [employer] Care Teams Chemistry Tutor Relationship Specialty Start Date End [place] [address] PCP - General INTERNAL MEDICINE 11/07/22
--- OUTSIDE RECORDS SUMMARY | 2025-01-25 13:11 | XMS_ITS | Encounter Summary ---
Author Organization [facility] Address [address] [place] [address] Care Team Providers Care Fisher Net Name Role Phone Fernando Myers MD Primary Care Provider [phone] Encounter Details Date Type Department Care Team (Late st Contact Info) Description 01/20/2025 Orders Only [facility] Health Information Management [address] [place] [address] Scanning, Provider Social History Tobacco Use Types Packs/Day Years Used Date Smoking Tobacco: Former Smokeless Tobacco: Never Comments:Smoking History Pac ks/day: 0.5 Packs Alcohol Use Standard Drinks/Week Comments [...] on file 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 Author [facility] No Deepali Davis, RN Note: Spend quality time with [employer] documented as of this encounter Procedures Procedure Name Priority Date/Time Associated Diagnosis Comments SCAN - LABS 01/20/2025 documented in this encounter Results * SCAN - LABS (01/20/2025) us Provider Scanning Final Result documented in this encounter Visit Diagnoses Not on filedocumented in this encounter Care Teams Fisher Net Relationship Specialty Start Date End Date Fernando Myers MD [address] [place] [address] PCP - General 09/11/16 documented as of this encounter
--- OUTSIDE RECORDS SUMMARY | 2025-01-25 13:11 | XMS_ITS | Clinical Summary ---
Author Organization [facility] Address [address] [place] [address] Care Team Providers Care Esthetician/Spa Coordinator Name Role Phone Fernando Myers MD Primary Care Provider [phone] Allergies No known active allergies Medications aspirin [...] (02/17/2018): Added automatically from request for surgery [id number] Chronic bilateral low back pain without sciatica [...] & Plan (08/21/2019 9:20 PM CDT): 03/11/18 FH=095 HDL=42 LP=666 DAM=334 TC/HDL=6.6 06/22/19 ZS=832 HDL=54 FK=667 QGG=863 TC/HDL=4.1 Reviewed labs from 06/22/19. 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00 ng/mL [facility] Comment: The total PSA value from this assay system is standardized against the WHO standard. The test result will be approximately 20% lower when compared to the equimolar-standardized total PSA (Danielle Colden). Comparison of serial PSA results should be [...] AM CDT FASTING:YES FASTING: YES Sonia King NP LAB BLOOD ORDERABLES Final Re sult [facility] [address] [id number] * Colonoscopy (12/29/2023 8:45 AM CDT) Anatomical Region Laterality Modality Other Narrative Procedure Note Aidee Powers MD - 12/29/2023 8:45 AM CDT [facility] Patient Name: Ulices Jamil Procedure Date: 12/29/2023 8:45 AM Date of : 1965 Admit Type: Outpatient Age: 58 Gender: Male Attending MD: Aidee Powers M.D. Room: [facility] END[facility]COPY ROOM 2 Note Status: Finalized Patient Profile: This is a 58 year old male hx of depression,anxiety, HLD, GERD, obesity, SABA here for polypsurveillance. Last colonoscopy from 2018 showed 1 polyp howeverbx did not reveal [...] by the physician, the anesthesiologist and the ekg/ecg technician in the endoscopy suite. MentalStatus Examination: [...] under direct vision. The Pediatric Colonoscope PCF-H190L [id number] was introducedthrough the anus and advanced to [...] 8:45 AM Procedure Code(s): --- Professional --- 82922, Colonoscopy, flexible; with removal of tumor(s), polyp(s), or other lesion(s) by snare technique 65473, 59, Colonoscopy, flexible; with biopsy, single or multiple --- Technical --- 12074, Colonoscopy, flexible; with removal of tumor(s), polyp(s), or other lesion(s) by snare technique 53807, 59, Colonoscopy, flexible; with biopsy, single or [...] Residual hemorrhoidal skin tags CPT copyright 2020 [employer]. All rights reserved. The codes documented in this report are preliminary and upon auto body detailer reviewmay be revised to meet current compliance requirements. Recognized by the [employer] for promoting quality in endoscopy Aidee Powers MD ENDOSCOPY PROCEDURES Final Resul t from Last 3 Months or Most Recently Relevant to Health Maintenance Insurance [facility] H[facility]/PPO Address: [address] [facility]/PPO Address: [place] [address] [facility] [employer] OOS Member Subscriber Plan / Payer (Ef fective 2020-Present) Name:Juan Jamilmilagros Queen Relation to Subscriber:Self Name:Juan Jamilney Bernice Payer ID:[id number] (NAIC) Type:[employer] Address: [address] [facility] HMO/PPO Address: [address] [address] [place] [address] [facility] HMO/PPO Address: [address] [address] [place] [address] Advance Directives For more information, please contact: [phone] * Full Code (Latest Code Status on File) Date Activated Date Inactivated Comments 12/29/2023 8:45 AM 12/29/2023 3:53 PM * Full Code Date Activated Date Inactivated Comments 12/29/2023 8:45 AM 12/29/2023 8:45 AM * Full Code Date Activated Date Inactivated Comments 03/07/2018 7:40 AM 03/07/2018 11:47 AM Care Teams Esthetician/Spa Coordinator Relationship Specialty Start Date End Date Fernando [place] [address] PCP - General 09/11/16
== END 2025-01-25 12:56 | disposition home or self-care (01) ==
PROVIDERS: PCP Family Medicine; Visit Provider Urology
DX: C61 Malignant neoplasm of prostate (principal)
CPT/HCPCS: 51600; 74430; Q9967